=== PATIENT | female | born 1990 | race Caucasian/White ===

== ENCOUNTER 2019-09-22 19:54 | Inpatient (IN) | payer BC ==
[~2019-09-22] VITALS: Ht 157.5 cm; Wt 100.5 kg
[~2019-09-22 19:54] MED LIST: ATOR20TA PO; FENO48TA16 PO; INSU100I13 SQ; LISI10TA2 PO
[2019-09-22] MEDS ORDERED: IV RINGERS SOLUTION,LACTATED 1,000 ML IV SCH (20:17)
[2019-09-22] MEDS ORDERED: KETOROLAC 30 MG/ML VIAL. IVP ONE (20:30)
[2019-09-22] MEDS ORDERED: ASPIRIN CHEWABLE 81 MG TABLET. PO ONE (20:30)
[2019-09-22 20:43] LABS: BASO # 0.1 x10^3/uL (0.0-0.2); BASO % 1 % (0-3); EOS # 0.4 x10^3/uL (0.0-0.7); EOS % 3 % (0-3); HEMATOCRIT 44.9 % (36.0-47.0); LYMPH # 3.8 x10^3/uL (1.0-4.8); LYMPH % 31 % (24-48); MEAN CORPUSCULAR VOLUME 88 fL (79-100); MONO # 0.4 x10^3/uL (0.0-1.1); MONO % 4 % (0-9); NEUT # 7.4 x10^3uL (1.8-7.7); NEUT % 61 % (31-73); PLATELET COUNT 347 x10^3/uL (140-400); RED BLOOD COUNT 5.09 x10^6/uL (3.50-5.40); RED CELL DISTRIBUTION WIDTH 13.8 % (11.5-14.5); WHITE BLOOD COUNT 12.1 x10^3/uL (4.0-11.0)
--- NOTE | 2019-09-22 21:04 | RAD ---
Two-view chest dated 09/22/2019. No comparison available. CLINICAL INDICATION: Chest pain and cough. FINDINGS: PA and lateral views obtained. Heart and mediastinal contours within normal limits. Lungs are clear. No consolidation or pleural effusion. No pneumothorax. IMPRESSION: No acute radiographic abnormality. Electronically signed by: Humza Berkowitz MD (09/22/2019 9:01 PM) [facility]
[2019-09-22 21:05] LABS: BARBITURATES NEG (NEG); BENZODIAZEPINES NEG (NEG); CANNABINOIDS NEG (NEG); COCAINE NEG (NEG); METHADONE NEG (NEG); OPIATES NEG (NEG); PHENCYCLIDINE NEG (NEG)
[2019-09-22 21:09] LABS: AMPHETAMINE/METHAMPHETAMINE NEG (NEG)
[2019-09-22 21:25] LABS: BLOOD UREA NITROGEN 13 mg/dL (7-20); CHLORIDE 92 mmol/L (98-107); CREATININE 0.7 mg/dL (0.6-1.0); GFR 99.6; POTASSIUM 4.2 mmol/L (3.5-5.1); SODIUM 127 mmol/L (136-145)
--- NOTE | 2019-09-22 21:25 | PHYS DOC ---
Past History Past Medical History: Anxiety, Bronchitis, Diabetes, High Cholesterol, Other Additional Past Medical Histor: insulin pump- 2015 Past Surgical History: Tubal ligation Smoking: Cigarettes Alcohol Use: Occasionally General Adult EDM: Chief Complaint: CHEST PAIN HPI: HPI: "..I been....having this cough..and this central chest pain....... the pain was in my chest when I woke up but is gotten worse all day long... Then coughing has also gotten worse tonight...".." I do smoke..but ..this seems different..I do have diabetes.... Patient is a 28 year old FEMALE who presents with above hx and complaints of chest pain and cough. Patient states pain started this morning upon waking and persisted throughout the day. Has been no improvement throughout the day. Patient's cough has increased throughout the day. Cough has been nonproductive. No history of trauma. Patient does smoke. Patient does have a history of of elevated Lipids. No recent travel outside the [place] area she lives in [facility]. No specific ill contacts. Denies any recent history of risk for COVID. No history of fevers. No history immunosuppression. No history of previous cardiac disorders. Patient states there is a family history of cardiac disorders starting in her 30s-40's. Father had OK at age 30. Mother has history of COPD and emphysema. . Pt.follows with Dr. Yanez. Review of Systems: Review of Systems: Constitutional: Denies fever or chills Eyes: Denies change in visual acuity HENT: Denies nasal congestion or sore throat Respiratory: Hx. of non-productive smoker cough Cardiovascular: Complaints of central chest pain GI: Denies abdominal pain, nausea, vomiting, bloody stools or diarrhea : Denies dysuria Musculoskeletal: Denies back pain or joint pain Integument: Denies rash Neurologic: Denies headache, focal weakness or sensory changes Endocrine: Denies polyuria or polydipsia Lymphatic: Denies swollen glands Psychiatric: Hx anxiety Heart Score: HEART Score for Chest Pain: HEART Score for Chest Pain Response (Comments) Value History Slighlty/Non-Suspicious 0 ECG Normal 0 Age < 45 0 Risk Factors >3 Risk Factors or Hx CAD 2 Troponin < Normal Limit 0 Total 2 Risk Factors: Risk Factors: DM, Current or recent (<one month) smoker, HTN, HLP, family history of CAD, obesity. Risk Scores: Score 0 - 3: 2.5% MACE over next 6 weeks - Discharge Home Score 4 - 6: 20.3% MACE over next 6 weeks - Admit for Clinical Observation Score 7 - 10: 72.7% MACE over next 6 weeks - Early Invasive Strategies Family History: Family History: Cardiac disorder s ages 30-40's- mother and father and grandmother. Current Medications: Current Meds: Current Medications Medications (Trade) Dose Ordered Sig/Jez Start Time Stop Time Status Last Admin Dose Admin Aspirin (Aspirin Chewable) 324 mg 1X ONCE 09/22/19 20:30 09/22/19 20:31 DC 09/22/19 20:44 324 MG Ketorolac Tromethamine (Toradol 30mg Vial) 30 mg 1X ONCE 09/22/19 20:30 09/22/19 20:31 DC 09/22/19 20:44 30 MG Lactated Ringer's 1,000 ml @ 1,000 mls/hr Q1H 09/22/19 20:17 09/22/19 21:16 DC 09/22/19 20:44 1,000 MLS/HR Allergies: Allergies: Allergies Coded Allergies Type Severity Reaction Last Updated Verified latex Allergy Mild RASH 09/28/14 Yes Physical Exam: PE: Constitutional: Moderate acute distress, non-toxic appearance. [] HENT: Normocephalic, atraumatic, bilateral external ears normal, oropharynx moist, no oral exudates, nose normal. [] Eyes: PERRLA, EOMI, conjunctiva normal, no discharge. [Glasses Neck: Normal range of motion, no tenderness, supple, no stridor. [] Cardiovascular:Heart rate regular rhythm, no murmur [] Lungs & Thorax: Bilateral breath sounds equal apex with scattered wheezes on auscultation [] With deep breath and cough pain in center of chest is reproduced. Describes pain as sharp. Abdomen: Bowel sounds normal, soft, no tenderness, no masses, no pulsatile masses. Obese. Insulin pump.- Rt. Old surgery scars. Skin: Warm, dry, no erythema, no rash. [] Back: No tenderness, no CVA tenderness. [] Extremities: No tenderness, no cyanosis, no clubbing, ROM intact, no edema. No cording appreciated in the legs Neurologic: Alert and oriented X 3, normal motor function, normal sensory function, no focal deficits noted. [] Psychologic: Affect anxious, judgement normal, mood normal. [] Current Patient Data: Labs: Laboratory Tests Test 09/22/19 20:00 09/22/19 20:23 Urine Opiates Screen Neg (NEG) Urine Methadone Screen Neg (NEG) Urine Barbiturates Neg (NEG) Urine Phencyclidine Screen Neg (NEG) Urine Amphetamine/Methamphetamine Neg (NEG) Urine Benzodiazepines Screen Neg (NEG) Urine Cocaine Screen Neg (NEG) Urine Cannabinoids Screen Neg (NEG) Urine Ethyl Alcohol Neg (NEG) POC Urine HCG, Qualitative hcg negative (Negative) Vital Signs: Vital Signs Date Time Temp Pulse Resp B/P (MAP) Pulse Ox O2 Delivery O2 Flow Rate FiO2 09/22/19 19:55 98.6 83 18 146/73 (97) 96 Room Air EKG: EKG: My interpretation EKG shows a normal sinus rhythm at 73 bpm. No findings of acute morphology. [] Radiology/Procedures: Radiology/Procedures: [address] [address] IMAGING REPORT Signed PATIENT: JAROCHO VOSS ACCOUNT: [id number] : 1990 LOCATION: ER AGE: 28 SEX: F EXAM STATUS: REG ER ORD. PHYSICIAN: DEBBIE SHAH MD REASON: DYSPNEA, CP Omni 350 100cc PROCEDURE: CT ANGIOGRAPHY CHEST EXAM: CT ANGIOGRAPHY OF THE CHEST WITH AND WITHOUT CONTRAST. HISTORY: Dyspnea, chest pain. TECHNIQUE: Computed tomographic angiography of the chest was performed before and after the intravenous administration of iodinated contrast. 3-D maximum intensity projections were also performed. One or more of the following individualized dose reduction techniques were utilized for this examination: 1. Automated exposure control. 2. Adjustment of the mA and/or kV according to patient size. 3. Use of iterative reconstruction technique. COMPARISON: None. FINDINGS: Images of the upper abdomen reveal hypoattenuation of the hepatic parenchyma is consistent with diffuse hepatic steatosis. The liver is at least mildly enlarged. Bone windows reveal no suspicious lesions. No pulmonary emboli are identified. There is no aortic dissection or aneurysm. Prominent right hilar lymph nodes measure up to 1.9 x 1.3 cm. A subcarinal node measures 2.4 x 1.0 cm. There is no pleural or pericardial effusion. The heart is not enlarged. Lung windows demonstrate mild bronchial wall thickening. Mild basilar groundglass opacities most likely reflect only atelectasis. IMPRESSION: 1. No pulmonary embolism. 2. Prominent right hilar and subcarinal lymph nodes are most likely reactive in this demographic. Correlate for infection. Follow-up could be considered if there is persistent concern. 3. Mild bronchial wall thickening suggests bronchitis. 4. Diffuse hepatic steatosis. Electronically signed by: Gege Layne MD (09/23/2019 2:03 AM) [facility] DICTATED AND SIGNED BY: CRISTIAN LAYNE MD DATE: 09/23/19 [id number] [place] [id number] IMAGING REPORT Signed PATIENT: JAROCHO VOSS ACCOUNT: [id number] : 1990 LOCATION: ER AGE: 28 SEX: F EXAM STATUS: REG ER ORD. PHYSICIAN: DEBBIE SHAH MD REASON: Chest pain, cough, congestion PROCEDURE: CHEST PA & LATERAL Two-view chest dated 09/22/2019. No comparison available. CLINICAL INDICATION: Chest pain and cough. FINDINGS: PA and lateral views obtained. Heart and mediastinal contours within normal limits. Lungs are clear. No consolidation or pleural effusion. No pneumothorax. IMPRESSION: No acute radiographic abnormality. Electronically signed by: Humza Berkowitz MD (09/22/2019 9:01 PM) [facility] DICTATED AND SIGNED BY: HUMZA BERKOWITZ MD DATE: 09/22/[id number] [place] [id number] IMAGING REPORT Signed PATIENT: JAROCHO VOSS ACCOUNT: [id number] : 1990 LOCATION: ER AGE: 28 SEX: F EXAM STATUS: REG ER ORD. PHYSICIAN: DEBBIE SHAH MD REASON: Chest pain, cough, congestion PROCEDURE: CHEST PA & LATERAL Two-view chest dated 09/22/2019. No comparison available. CLINICAL INDICATION: Chest pain and cough. FINDINGS: PA and lateral views obtained. Heart and mediastinal contours within normal limits. Lungs are clear. No consolidation or pleural effusion. No pneumothorax. IMPRESSION: No acute radiographic abnormality. Electronically signed by: Humza Berkowitz MD (09/22/2019 9:01 PM) [facility] [place]ATED AND SIGNED BY: HUMZA BERKOWITZ MD DATE: 09/22/192100 CC: DEBBIE SHAH MD; YVES YANEZ MD ~ Course & Med Decision Making: Course & Med Decision Making Pertinent Labs and Imaging studies reviewed. (See chart for details) Pt. admitted to and cardiology consult. Discussed presentation, testing and tx. plan. ( Awaiting Lipid - levels) Impression: 1. Chest Pain 2. Elevated D-Dimer 5.48 3. Leukocytosis 12.1 4. Hyponatremia 127- Suspect reactive to elev. glucose 5. DM - glu. 320 6. Malnutrition Alb.3.1 7. Bronchitis 8. Hx. Elevated Lipids 9. Tobacco Use [] Roxana Disclaimer: Roxana Disclaimer: This electronic medical record was generated, in whole or in part, using a voice recognition dictation system. Departure Departure: Disposition: HOME/RESIDENCE PRIOR TO ADM Condition: STABLE Referrals: YVES YANEZ MD (PCP) Roxana Disclaimer This chart was dictated in whole or in part using Voice Recognition software in a busy, high-work load, and often noisy Emergency Department environment. It may contain unintended and wholly unrecognized errors or omissions. DEBBIE SHAH MD September 22, 2019 21:25
[2019-09-22 21:34] LABS: ALBUMIN 3.1 g/dL (3.4-5.0); ALK PHOS 101 U/L (46-116); ANION GAP 9 (6-14); CALCIUM 8.7 mg/dL (8.5-10.1); CARBON DIOXIDE 26 mmol/L (21-32); GLUCOSE 320 mg/dL (70-99); LIPASE 131 U/L (73-393); MAGNESIUM 1.7 mg/dL (1.8-2.4); TOTAL BILIRUBIN 0.4 mg/dL (0.2-1.0)
[2019-09-22 21:37] LABS: HEMOGLOBIN 14.5 g/dL (12.0-15.5)
[2019-09-22 21:38] LABS: MEAN CORPUSCULAR HEMOGLOBIN 29 pg (25-35); MEAN CORPUSCULAR HGB CONC 32 g/dL (31-37)
[2019-09-22 21:44] LABS: TOTAL PROTEIN 6.9 g/dL (6.4-8.2)
[2019-09-22 21:54] LABS: BACTERIA,URINE FEW /HPF (0-FEW); BILIRUBIN,URINE NEG (NEG); CLARITY,URINE CLEAR; COLOR,URINE YELLOW; GLUCOSE,URINE 500 mg/dL (NEG); NITRITE,URINE NEG (NEG); RBC,URINE OCC /HPF (0-2); SQUAMOUS EPITHELIAL CELL,UR MOD /LPF; UROBILINOGEN,URINE 0.2 mg/dL (0.2 mg/dL); WBC,URINE 0 /HPF (0-4)
[2019-09-22 22:41] LABS: DIRECT BILIRUBIN < 0.1 mg/dL (0.0-0.2)
[2019-09-22 22:51] LABS: % BANDS 4 % (0-9); % EOS 7 % (0-5); % LYMPHS 30 % (24-48); % MONOS 3 % (0-10); % OTHERS 1 % (0-0); % SEGS 55 % (35-66); PLT ESTIMATE ADEQUATE (ADEQUATE)
[2019-09-22 22:57] LABS: ALT (SGPT) 24 U/L (14-59)
[2019-09-22 23:10] LABS: AST (SGOT) 43 U/L (15-37)
--- NOTE | 2019-09-22 23:19 | EKG ---
[address] [address] Test Date: 2019-09-22 Test Time: 20:09:17 Pat Name: JAORCHO VOSS Department: Room: Gender: F Curriculum Counselor: : 1990 Requested By: DEBBIE SHAH Order Number: [id number] Reading MD: Abdi Prince Measurements Intervals [place] Rate: 73 P: 0 WA: 128 QRS: 47 QRSD: 94 T: 3 QT: 372 QTc: 413 Interpretive Statements SINUS RHYTHM NORMAL ECG RI6.02 No previous ECG available for comparison Electronically Signed On 09-23-2019 15:51:00 CDT by Abdi Prince
[2019-09-23] MEDS ORDERED: CONTRAST GIVEN MC PRN (00:15)
[2019-09-23] MEDS ORDERED: IOHEXOL 350 MG/ML 100 ML VIAL. IV ONE (00:30)
[2019-09-23] MEDS ORDERED: ENOXAPARIN ** NOTE DOSE ** SYRINGE SQ ONE ×2 (00:30→09:00)
[2019-09-23] MEDS ORDERED: INSULIN REGULAR 100 UNIT/ML 3ML VIAL. SQ ONE (01:00)
[2019-09-23] MEDS ORDERED: SODIUM BICARB ADULT 8.4% 50 MEQ/50 ML DISP.SYRIN. IV ONE (01:00)
[2019-09-23] MEDS ORDERED: MAGNESIUM SULFATE 2GM 50 ML IV ONE (01:00)
--- NOTE | 2019-09-23 02:06 | RAD ---
EXAM: CT ANGIOGRAPHY OF THE CHEST WITH AND WITHOUT CONTRAST. HISTORY: Dyspnea, chest pain. TECHNIQUE: Computed tomographic angiography of the chest was performed before and after the intravenous administration of iodinated contrast. 3-D maximum intensity projections were also performed. One or more of the following individualized dose reduction techniques were utilized for this examination: 1. Automated exposure control. 2. Adjustment of the mA and/or kV according to patient size. 3. Use of iterative reconstruction technique. COMPARISON: None. FINDINGS: Images of the upper abdomen reveal hypoattenuation of the hepatic parenchyma is consistent with diffuse hepatic steatosis. The liver is at least mildly enlarged. Bone windows reveal no suspicious lesions. No pulmonary emboli are identified. There is no aortic dissection or aneurysm. Prominent right hilar lymph nodes measure up to 1.9 x 1.3 cm. A subcarinal node measures 2.4 x 1.0 cm. There is no pleural or pericardial effusion. The heart is not enlarged. Lung windows demonstrate mild bronchial wall thickening. Mild basilar groundglass opacities most likely reflect only atelectasis. IMPRESSION: 1. No pulmonary embolism. 2. Prominent right hilar and subcarinal lymph nodes are most likely reactive in this demographic. Correlate for infection. Follow-up could be considered if there is persistent concern. 3. Mild bronchial wall thickening suggests bronchitis. 4. Diffuse hepatic steatosis. Electronically signed by: Gege Layne MD (09/23/2019 2:03 AM) [facility]
[2019-09-23] MEDS ORDERED: IV NORMAL SALINE 1,000ML 1,000 ML IV SCH (02:09)
[2019-09-23] MEDS ORDERED: MORPHINE SULFATE 2 MG/ML DISP.SYRIN. IVP PRN (02:15)
[2019-09-23] MEDS ORDERED: ACETAMINOPHEN 325 MG TABLET PO PRN (02:15)
[2019-09-23] MEDS ORDERED: ANTI-COAG MONITOR BY PHARMACY. MC PRN (02:30)
[2019-09-23] MEDS ORDERED: AZITHROMYCIN 250 MG TABLET. PO ONE (02:30)
[2019-09-23] MEDS: IV RINGERS SOLUTION,LACTATED 1,000 ML IV SCH ×3 (03:07→13:12)
[2019-09-23] MEDS ORDERED: MORPHINE SULFATE 10 MG/ML SYRINGE. ONE (03:16)
--- NOTE | 2019-09-23 03:50 | NUR ---
The patient, JAROCHO VOSS, 28 y/o, F admitted by ELISA QUINTANILLA MD, was given written information regarding hospital policies, unit procedures and contact persons. Valuables were checked and VSS. pt monitored via desk monitor. pt a&o able to express concerns. will continue to monitor.
[2019-09-23 03:51] VITALS: BP 140/75
[2019-09-23 05:26] VITALS: BP 119/63
[2019-09-23] MEDS ORDERED: METF500T16 PO (05:42)
[2019-09-23] MEDS ORDERED: NIAC-9 PO (05:42)
[2019-09-23] MEDS ORDERED: FENO48TA16 PO (05:42)
[2019-09-23] MEDS ORDERED: LISI-338 PO (05:42)
[2019-09-23] MEDS ORDERED: LIPITOR80 MG PO (05:42)
--- NOTE | 2019-09-23 05:58 | NUR ---
Cardiology Consult called this am.
[2019-09-23] MEDS: IPRATRPIUM/ALBUTEROL 0.5/2.5MG 3 ML NEBU. NEB SCH ×4 (08:00→20:00)
--- NOTE | 2019-09-23 08:30 | PDOC2 ---
CARDIAC CONSULT DATE OF CONSULT Date Of Consult DATE: 09/23/19 TIME: 08:25 REASON FOR CONSULT Reason for Consult Chest pain, HTN REFERRING PHYSICIAN Referring Physician Dr. Raya SOURCE Source: Chart review, Patient HPI History of Present Illness This is a 28 yo female who presented secondary to chest pain. Patient reports pain began yesterday morning. Worse after afternoon nap so she came to the ED for further evaluation and treatment. Located in her central/epigastric region. Describes as stabbing in nature. Worse with apply pressure to her central chest. No associated shortness of breath, dizziness, diaphoresis, or palpitations. Does report recent persistent cough. No fevers. No known sick contacts. PAST MEDICAL HISTORY Cardiovascular: hyperipidemia Endocrine: Diabetes PAST SURGICAL HISTORY Past Surgical History: No pertinent history FAMILY HISTORY Family History: Heart Disease SOCIAL HISTORY Smoke: <1 pack per day ALCOHOL: none Drugs: None Lives: with Family CURRENT MEDICATIONS Current Medications Current Medications Aspirin (Aspirin Chewable) 324 mg 1X ONCE PO Last administered on 09/22/19at 20:44; Start 09/22/19 at 20:30; Stop 09/22/19 at 20:31; Status DC Lactated Ringer's 1,000 ml @ 1,000 mls/hr Q1H IV Last administered on 09/22/19at 20:44; Start 09/22/19 at 20:17; Stop 09/22/19 at 21:16; Status DC Ketorolac Tromethamine (Toradol 30mg Vial) 30 mg 1X ONCE IVP Last administered on 09/22/19at 20:44; Start 09/22/19 at 20:30; Stop 09/22/19 at 20:31; Status DC Enoxaparin Sodium (Lovenox 100mg Syringe) 100 mg 1X ONCE SQ Last administered on 09/23/19at 00:05; Start 09/23/19 at 00:30; Stop 09/23/19 at 00:31; Status DC Iohexol (Omnipaque 350 Mg/ml) 100 ml 1X ONCE IV Last administered on 09/23/19at 00:28; Start 09/23/19 at 00:30; Stop 09/23/19 at 00:31; Status DC Info (Do NOT chart on this entry -- for MONITORING) 1 each PRN DAILY PRN MC SEE COMMENTS; Start 09/23/19 at 00:15; Stop 09/25/19 at 00:14 Sodium Bicarbonate (Sodium Bicarb Adult 8.4% Syr) 50 meq 1X ONCE IV Last administered on 09/23/19at 00:55; Start 09/23/19 at 01:00; Stop 09/23/19 at 01:01; Status DC Magnesium Sulfate 50 ml @ 25 mls/hr 1X ONCE IV Last administered on 09/23/19at 00:54; Start 09/23/19 at 01:00; Stop 09/23/19 at 02:59; Status DC Insulin Human Regular (HumuLIN R VIAL) 10 unit 1X ONCE SQ Last administered on 09/23/19at 01:03; Start 09/23/19 at 01:00; Stop 09/23/19 at 01:01; Status DC Ondansetron HCl (Zofran) 4 mg PRN Q4HRS PRN IVP NAUSEA/VOMITING; Start 09/23/19 at 02:15; Stop 09/24/19 at 02:14 Morphine Sulfate (Morphine 2mg Syringe) 2 mg PRN Q4HRS PRN IVP PAIN; Start 09/23/19 at 02:15; Stop 09/24/19 at 02:14 Sodium Chloride 1,000 ml @ 0 mls/hr Q0M IV ; Start 09/23/19 at 02:09; Stop 09/24/19 at 02:08; Status UNV Acetaminophen (Tylenol) 650 mg PRN Q4HRS PRN PO FEVER > 100.3'F; Start 09/23/19 at 02:15; Stop 09/24/19 at 02:14 Albuterol/ Ipratropium (Duoneb) 3 ml RTQID NEB ; Start 09/23/19 at 08:00; Stop 09/24/19 at 07:59 Aspirin (Aspirin Chewable) 81 mg DAILYWBKFT PO ; Start 09/23/19 at 08:00 Enoxaparin Sodium (Lovenox 100mg Syringe) 100 mg BID ONCE SQ ; Start 09/23/19 at 09:00; Stop 09/23/19 at 09:01 Lactated Ringer's 1,000 ml @ 160 mls/hr Q6H15M IV Last administered on 09/23/19at 03:07; Start 09/23/19 at 02:15 Sodium Chloride 1,000 ml @ 1,000 mls/hr Q1H IV ; Start 09/24/19 at 02:30; Stop 09/24/19 at 03:29 Azithromycin (Zithromax) 500 mg 1X ONCE PO Last administered on 09/23/19at 03:07; Start 09/23/19 at 02:30; Stop 09/23/19 at 02:31; Status DC Azithromycin (Zithromax) 250 mg DAILY PO ; Start 09/23/19 at 09:00 Info (Anti-Coagulation Monitoring By Pharmacy) 1 each PRN DAILY PRN MC SEE COMMENTS; Start 09/23/19 at 02:30 Morphine Sulfate (Morphine 10mg Syringe) 10 mg STK-MED ONCE .ROUTE ; Start 09/23/19 at 03:16; Stop 09/23/19 at 03:17; Status DC Active Scripts Active Reported Niacor (Niacin) 500 Mg Tablet 500 Mg PO BID Lisinopril 5 Mg Tablet 1 Tab PO DAILY Tricor (Fenofibrate Nanocrystallized) 48 Mg Tablet 1 Tab PO DAILY Lipitor (Atorvastatin Calcium) 80 Mg Tablet 1 Tab PO HS Metformin Hcl 500 Mg Tablet 1 Tab PO BID ALLERGIES Allergies: Coded Allergies: latex (Verified Allergy, Mild, RASH, 09/28/14) ROS Review of Systems 14 point ROS conducted with pertinent positives noted above in HPI PHYSICAL EXAM General: Alert, Oriented X3, Cooperative, No acute distress HEENT: Atraumatic, Mucous membr. moist/pink Lungs: Clear to auscultation Heart: Regular rate, Normal S1, Normal S2 Abdomen: Soft, No tenderness Extremities: No edema, Normal pulses Skin: No breakdown Neuro: Normal speech, Sensation intact Psych/Mental Status: Mental status NL, Mood NL MUSCULOSKELETAL: Osteoarthritic changes both hands VITALS Vital Signs Vital Signs Date Time Temp Pulse Resp B/P (MAP) Pulse Ox O2 Delivery O2 Flow Rate FiO2 09/23/19 05:26 96.2 66 20 119/63 (81) 92 Room Air LABS LABS Laboratory Tests Test 09/22/19 20:00 09/22/19 20:23 09/22/19 20:25 09/23/19 03:10 Urine Collection Type Unknown Urine Color Yellow Urine Clarity Clear Urine pH 5.0 Urine Specific [place] 1.020 Urine Protein 100 mg/dl (NEG-TRACE) Urine Glucose (UA) 500 mg/dL (NEG) Urine Ketones (Stick) Trace mg/dL (NEG) Urine Blood Neg (NEG) Urine Nitrite Neg (NEG) Urine Bilirubin Neg (NEG) Urine Urobilinogen Dipstick 0.2 mg/dL (0.2 mg/dL) Urine Leukocyte Esterase Neg (NEG) Urine RBC Occ /HPF (0-2) Urine WBC 0 /HPF (0-4) Urine Squamous Epithelial Cells Mod /LPF Urine Bacteria Few /HPF (0-FEW) Urine Opiates Screen Neg (NEG) Urine Methadone Screen Neg (NEG) Urine Barbiturates Neg (NEG) Urine Phencyclidine Screen Neg (NEG) Urine Amphetamine/Methamphetamine Neg (NEG) Urine Benzodiazepines Screen Neg (NEG) Urine Cocaine Screen Neg (NEG) Urine Cannabinoids Screen Neg (NEG) Urine Ethyl Alcohol Neg (NEG) Bedside Urine HCG, Qualitative hcg negative (Negative) White Blood Count 12.1 x10^3/uL (4.0-11.0) Red Blood Count 5.09 x10^6/uL (3.50-5.40) Hemoglobin 14.5 g/dL (12.0-15.5) Hematocrit 44.9 % (36.0-47.0) Mean Corpuscular Volume 88 fL (79-100) Mean Corpuscular Hemoglobin 29 pg (25-35) Mean Corpuscular Hemoglobin Concent 32 g/dL (31-37) Red Cell Distribution Width 13.8 % (11.5-14.5) Platelet Count 347 x10^3/uL (140-400) Neutrophils (%) (Auto) 61 % (31-73) Lymphocytes (%) (Auto) 31 % (24-48) Monocytes (%) (Auto) 4 % (0-9) Eosinophils (%) (Auto) 3 % (0-3) Basophils (%) (Auto) 1 % (0-3) Neutrophils # (Auto) 7.4 x10^3uL (1.8-7.7) Lymphocytes # (Auto) 3.8 x10^3/uL (1.0-4.8) Monocytes # (Auto) 0.4 x10^3/uL (0.0-1.1) Eosinophils # (Auto) 0.4 x10^3/uL (0.0-0.7) Basophils # (Auto) 0.1 x10^3/uL (0.0-0.2) Segmented Neutrophils % 55 % (35-66) Band Neutrophils % 4 % (0-9) Lymphocytes % 30 % (24-48) Monocytes % 3 % (0-10) Eosinophils % 7 % (0-5) Other Cells % 1 % (0-0) Platelet Estimate Adequate (ADEQUATE) Prothrombin Time < 9.3 SEC (9.4-11.4) Prothromb Time International Ratio 0.8 (0.9-1.1) Activated Partial Thromboplast Time 23 SEC (23-33) D-Dimer (Sarika) 5.48 mg/L (0.00-0.50) Maternal Serum HCG Beta Subunit 1 mIU/mL (0-6) Sodium Level 127 mmol/L (136-145) Potassium Level 4.2 mmol/L (3.5-5.1) Chloride Level 92 mmol/L (98-107) Carbon Dioxide Level 26 mmol/L (21-32) Anion Gap 9 (6-14) Blood Urea Nitrogen 13 mg/dL (7-20) Creatinine 0.7 mg/dL (0.6-1.0) Estimated GFR (Cockcroft-Gault) 99.6 Glucose Level 320 mg/dL (70-99) Calcium Level 8.7 mg/dL (8.5-10.1) Magnesium Level 1.7 mg/dL (1.8-2.4) Total Bilirubin 0.4 mg/dL (0.2-1.0) Direct Bilirubin < 0.1 mg/dL (0.0-0.2) Aspartate Amino Transf (AST/SGOT) 43 U/L (15-37) Alanine Aminotransferase (ALT/SGPT) 24 U/L (14-59) Alkaline Phosphatase 101 U/L (46-116) Creatine Kinase 124 U/L (26-192) Creatine Kinase MB (Mass) 0.9 ng/mL (0.0-3.6) Creatine Kinase MB Relative Index 0.7 % (0-4) Troponin I Quantitative < 0.017 ng/mL (0-0.055) [place]-V-Type Natriuretic Peptide 115 pg/mL (0-124) Total Protein 6.9 g/dL (6.4-8.2) Albumin 3.1 g/dL (3.4-5.0) Lipase 131 U/L (73-393) Glucose (Fingerstick) 96 mg/dL (70-99) Test 09/23/19 05:22 Troponin I Quantitative < 0.017 ng/mL (0-0.055) ASSESSMENT/PLAN Assessment/Plan 1. Chest pain,atypical; AMI ruled out. Possible GI in nature. Cannot rule out pleuritic pain as well given recurrent coughing. COVID pending. 2. Diabetes, I 3. Elevated d-dimer 4. Hypomagnesemia; replaced Recommendations Lipids, TSH Will try GI cocktail Supportive care MARTHA PRINCE APRN September 23, 2019 08:30
[2019-09-23] MEDS ORDERED: LIDO:MAALOX 1:1 20 ML SINGLE DOSE. PO PRN (09:00)
--- NOTE | 2019-09-23 09:09 | NUR ---
Cancelled breathing treatments due to pending Covid test results
[2019-09-23] MEDS: AZITHROMYCIN 250 MG TABLET. PO SCH (10:54)
[2019-09-23] MEDS: ASPIRIN CHEWABLE 81 MG TABLET. PO SCH (10:54)
[2019-09-23 11:30] VITALS: BP 101/51
[2019-09-23] MEDS: ONDANSETRON PF 4 MG/2 ML VIAL. IVP PRN ×2 (13:30→18:42)
[2019-09-23 15:00] VITALS: BP 112/58
[2019-09-23 17:00] LABS: THYROID STIM HORMONE (TSH) 1.764 uIU/mL (0.358-3.740); TRIGLYCERIDES 3615 mg/dL (0-150); VLDLC 723 mg/dL (0-40)
[2019-09-23] MEDS ORDERED: INSULIN LISPRO 300 UNITS/3 ML VIAL. SQ SCH (17:00)
[2019-09-23] MEDS: IV NORMAL SALINE 1,000ML 1,000 ML IV SCH (17:00)
[2019-09-23] MEDS ORDERED: DEXTROSE 50% 25 GM / 50ML DISP.SYRIN. IV PRN (17:00)
--- NOTE | 2019-09-23 18:14 | HP ---
ADMIT DATE: 09/23/2019 HISTORY OF PRESENT ILLNESS: The patient is a 28-year-old female patient who presented to the Emergency Room with complaint of chest pain that is retrosternal, started yesterday, has been worsening throughout the day. She has cough that also got worse. She does smoke and the pain initially was not associated with any shortness of breath; however, did have some nausea and vomiting today. She has also some pain radiating to the left upper extremity around the shoulder and the pain is reproducible on palpating the sternum. The cough is mostly dry. Denied any phlegm or sputum or hemoptysis. She was extensively investigated in the Emergency Room. Her EKG showed that she was in normal sinus rhythm at 73 beats per minute, no finding of acute morphology. Her chest x-ray showed no acute radiographic abnormality. The heart and mediastinal contours within normal limits. Lungs are clear. No consolidation, pleural effusion, no pneumothorax. Her CT angio of the chest showed that the patient has no pulmonary embolism. She has prominent hilar and subcarinal lymph nodes, are mostly likely reactive and this demographic correlates for infection. Followup could be considered if there is persistent concern. Mild bronchial wall thickening suggesting bronchitis diffuse, hepatic steatosis. The lung windows demonstrate mild bronchial wall thickening, mild basilar ground glass opacities, most likely reflecting only atelectasis. Liver is at least mildly enlarged. Bone windows reveal no suspicious lesion. Her lab work showed that her white cell count was slightly elevated at 12,100, hemoglobin 14.5, hematocrit 44 and platelet count 347,000. Her prothrombin time, INR and aPTT were normal. D-dimer was elevated at 5.48. She has had lab work done. Her chemistry was unremarkable. She has ____ hyperglycemia. She has 2 sets of cardiac enzymes, both were less than 0.017. The patient was admitted to consult the cardiology team given the finding also on her CT scan of the chest. COVID-19 testing was ordered. She was found also to have other abnormalities including hyponatremia, which is still low even it is corrected for the blood sugar. PAST MEDICAL HISTORY: Significant for diabetes mellitus, hyperlipidemia. PAST SURGICAL HISTORY: Significant for tonsillectomy and tubal ligation. ALLERGIES: She is allergic to LATEX. MEDICATIONS: She is currently on following medications: She is on fenofibrate ____ 48 mg once a day, atorvastatin calcium 80 mg at bedtime, niacin 500 mg twice a day, lisinopril 5 mg once a day, metformin 500 mg twice a day. FAMILY HISTORY: She has 3 brothers and 2 sisters, all of them half-brothers and sisters. Her father is alive and at the age of 44, he had first heart attack when he was in his 30s. He has AICD. Her mother is still alive and has COPD. SOCIAL HISTORY: She is , smokes, has no children. She smokes half a pack a day, does not drink alcohol or use any recreational drugs. She works at [employer]. REVIEW OF SYSTEMS: Unremarkable. PHYSICAL EXAMINATION: GENERAL: On arrival to the Emergency Room, she looked well and was clearly in no apparent respiratory distress. No pallor, jaundice, cyanosis or thyromegaly. No jugular venous distention or limb edema. VITAL SIGNS: Her heart rate was 83, blood pressure was 146/73, temperature was 98.6, respiratory rate was 18 and oxygen saturation was 96%. HEAD, EYES, EARS, NOSE AND THROAT: Showed normocephalic, atraumatic. NECK: Supple. CARDIAC: Normal first and second heart sounds. No gallop, rub or murmur. CHEST: Shows central trachea, equal bilateral expansion, air entry, vesicular sounds with very few scattered rhonchi, could not appreciate any crepitation. ABDOMEN: Distended, soft, nontender. NEUROLOGIC: She was awake, alert, responding appropriately. All cranial nerves intact. EXTREMITIES: She moves extremities without difficulty. She ambulates without assistance or assistive devices. LABORATORY DATA: Showed a white cell count of 12,100, hemoglobin 14.5, hematocrit 44.9, MCV was 88 and platelet count 347,000 with normal manual differential. Her prothrombin time was 9.3, INR 0.8, aPTT was 23 and D-dimer was 5.48. Her chemistry showed a serum sodium of 127, potassium 4.2, chloride 92, bicarbonate 26, anion gap of 9, BUN 13, creatinine 0.7, estimated GFR was 99 mL per minute. Her glucose was 320, calcium was 8.7, magnesium was 1.7. Total bilirubin, AST, ALT, alkaline phosphatase were normal. CK was 124. Beta-natriuretic peptide was 115 and total protein 6.9, albumin 3.1. Urinalysis showed the urine was yellow, clear with a pH of 5, specific gravity of 1.020. There was large amount of protein, large amount of glucose, trace of ketones, negative for blood, nitrite, bilirubin and leukocyte esterase. There are no rbc's, no wbc's, and no bacteria. Her urine test was negative. Toxic screen was essentially negative. Again, her chest x-ray showed the heart and mediastinal contours are within normal limits. Lungs are clear. No consolidation, pleural effusion, no pneumothorax. CT angio of the chest showed that she has no pulmonary embolism. She has prominent right hilar and subcarinal lymph nodes that are most likely reactive. Followup could be considered if there is persistent concern. She has mild bronchial wall thickening suggesting bronchitis and diffuse hepatic steatosis. PLAN: To obviously make the patient do 2 more sets of cardiac enzyme, consult the Cardiology team given the finding on the CT scan. Also, COVID test was ordered and still pending at the time of this dictation. I will continue with Zithromax and add also Rocephin and if the COVID test was obviously negative, she can be discharged home tomorrow. ELISA QUINTANILLA MD DR: KEVAN/wes JOB#: [id number] / [id number]
[2019-09-23 20:03] VITALS: BP 99/60
[2019-09-23] MEDS ORDERED: ATORVASTATIN CALCIUM 20 MG TABLET PO SCH (21:00)
[2019-09-23] MEDS: LACTOBACILLUS RHAMNOSUS GG 1 CAPSULE. PO SCH (21:45)
[2019-09-23] MEDS: NIACIN ER 500 MG TABLET.ER PO SCH (21:45)
[2019-09-24 00:10] VITALS: BP 94/57
[2019-09-24] MEDS ORDERED: IV NORMAL SALINE 1,000ML 1,000 ML IV SCH (02:30)
[2019-09-24] MEDS: IV NORMAL SALINE 1,000ML 1,000 ML IV SCH (02:57)
[2019-09-24 06:26] LABS: BASO # 0.1 x10^3/uL (0.0-0.2); BASO % 2 % (0-3); EOS # 0.2 x10^3/uL (0.0-0.7); EOS % 3 % (0-3); HEMATOCRIT 40.8 % (36.0-47.0); HEMOGLOBIN 13.9 g/dL (12.0-15.5); LYMPH # 2.8 x10^3/uL (1.0-4.8); LYMPH % 36 % (24-48); MEAN CORPUSCULAR HEMOGLOBIN 30 pg (25-35); MEAN CORPUSCULAR HGB CONC 34 g/dL (31-37); MEAN CORPUSCULAR VOLUME 88 fL (79-100); MONO # 0.4 x10^3/uL (0.0-1.1); MONO % 5 % (0-9); NEUT # 4.2 x10^3uL (1.8-7.7); NEUT % 54 % (31-73); PLATELET COUNT 234 x10^3/uL (140-400); RED BLOOD COUNT 4.63 x10^6/uL (3.50-5.40); RED CELL DISTRIBUTION WIDTH 14.1 % (11.5-14.5); WHITE BLOOD COUNT 7.8 x10^3/uL (4.0-11.0)
[2019-09-24 06:33] LABS: CALCIUM 7.8 mg/dL (8.5-10.1); CREATININE 0.7 mg/dL (0.6-1.0); GFR 99.6
[2019-09-24 06:34] LABS: POTASSIUM 3.4 mmol/L (3.5-5.1)
[2019-09-24 06:46] VITALS: BP 112/66
[2019-09-24 08:14] VITALS: BP 112/66
[2019-09-24] MEDS: NIACIN ER 500 MG TABLET.ER PO SCH (08:14)
[2019-09-24] MEDS: ASPIRIN CHEWABLE 81 MG TABLET. PO SCH (08:14)
[2019-09-24] MEDS: AZITHROMYCIN 250 MG TABLET. PO SCH (08:14)
[2019-09-24] MEDS: LACTOBACILLUS RHAMNOSUS GG 1 CAPSULE. PO SCH (08:14)
[2019-09-24] MEDS ORDERED: POTASSIUM CHLORIDE 20 MEQ TABLET.ER. PO ONE (08:45)
[2019-09-24] MEDS ORDERED: LISINOPRIL 5 MG TABLET. PO SCH (09:00)
[2019-09-24] MEDS ORDERED: FENOFIBRATE NANOCRYSTALLIZED 48 MG TABLET PO SCH (09:00)
--- NOTE | 2019-09-24 09:27 | DS ---
DATE OF DISCHARGE: 09/24/2019 ATTENDING PHYSICIAN: Dr. Duncan FINAL DISCHARGE DIAGNOSES: 1. Atypical chest pain, coronary ischemia ruled out. 2. Type 2 diabetes. 3. Pleurisy. 4. COVID-19 coronavirus ruled out. 5. Essential hypertension. HISTORY AND PHYSICAL: This is a 28-year-old female, smoker, who was admitted to the ED with reproducible chest pain, substernal in nature, aggravated by cough, more pleuritic in nature. She was admitted overnight for COVID-19 testing as well as serial enzymes. PHYSICAL EXAMINATION: Please see the dictated note. PERTINENT LABORATORY AND X-RAY STUDIES: Her COVID-19 swab was indeed negative. Hemoglobin maintained at 14.5 g/dL with white count of 12,000, repeat was down to 7800. Chemistry panel: Potassium was 3.4 mEq with some oral potassium administered prior to discharge. Nonfasting blood sugar 149. COURSE IN THE HOSPITAL: The patient was admitted. She was monitored. Cardiac enzymes are negative for coronary ischemia. COVID-19 swab was negative for coronavirus. She had localized symptoms related to pleurisy, which improved. She has some also left shoulder pain due to some mild supraspinatus tendinitis. On the second hospital day, she was better. She wanted to go home. I felt this is reasonable. I reassured her that her symptoms are noncardiac in nature. Strong encouragement to quit smoking. Whether or not she will quit smoking remains to be seen. I did write a script for Percocet 7.5/325 one p.o. q.6 hours p.r.n. pain. She should continue her home meds including the following: She should continue her Lipitor, TriCor, lisinopril, metformin and niacin, dose is unchanged. She will follow with her regular PCP. The patient was then discharged from our hospital in stable condition with explicit instructions and followup care. NELA JENSEN MD DR: HARDEEP/wes JOB#: [id number] / [id number]
--- NOTE | 2019-09-24 10:01 | NUR ---
Pt. discharged home with pain medication and note to return back to work. Otherwise stable and will continue use of personal insulin pump
[2019-09-25] MEDS ORDERED: metFORMIN 500 MG TABLET PO SCH (17:00)
== END 2019-09-24 10:05 | disposition home or self-care (01) | DRG 392 ==
LOC: ER 19:54 → EDUNIT# 19:54 → 1 SOUTH 09-23 02:00
PROVIDERS: ADMIT Internal Medicine; ATTEND Internal Medicine
DX: K21.9 Gastro-esophageal reflux disease without esophagitis (principal); E46 Unspecified protein-calorie malnutrition; E87.1 Hypo-osmolality and hyponatremia; Z68.41 Body mass index [BMI] 40.0-44.9, adult; R07.89 Other chest pain; D72.829 Elevated white blood cell count, unspecified; E78.00 Pure hypercholesterolemia, unspecified; E78.5 Hyperlipidemia, unspecified; R09.1 Pleurisy; Z20.828 Contact with and (suspected) exposure to other viral communicable diseases; I10 Essential (primary) hypertension; F17.210 Nicotine dependence, cigarettes, uncomplicated; K76.0 Fatty (change of) liver, not elsewhere classified; E83.42 Hypomagnesemia; Z82.5 Family history of asthma and other chronic lower respiratory diseases; Z98.51 Tubal ligation status; F41.9 Anxiety disorder, unspecified; Z82.49 Family history of ischemic heart disease and other diseases of the circulatory system; Z91.040 Latex allergy status
CPT/HCPCS: 36415; 71046; 71275; 80048; 80061; 80076; 80307; 81001; 81025; 82553; 82947; 83690; 83735; 83880; 84443; 84484; 84702; 85007; 85025; 85379; 85610; 85730; 93005; 96365; 96372; 96375; J0456; J0696; J1650; J1815; J1885; J2270; J2405; J3475; J7120; Q9967; 99285-25; J7030; U0003-CS

== ENCOUNTER 2019-10-28 19:49 | Emergency (ER) | payer BC ==
[~2019-10-28] VITALS: Ht 157.5 cm; Wt 94.0 kg
[~2019-10-28 19:49] MED LIST changes: +LIPITOR80 MG PO; +LISI-338 PO; +METF500T16 PO; +NIAC-9 PO
[2019-10-28] MEDS ORDERED: FAMOTIDINE 20 MG/2 ML VIAL ONE (20:10)
[2019-10-28] MEDS ORDERED: KETOROLAC 15 MG/ML VIAL. IVP ONE (20:15)
[2019-10-28] MEDS ORDERED: IV NORMAL SALINE 1,000ML 1,000 ML IV ONE ×2 (20:15→22:15)
[2019-10-28] MEDS ORDERED: FAMOTIDINE 20 MG/2 ML VIAL IVP ONE (20:15)
--- NOTE | 2019-10-28 20:34 | EKG ---
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
[2019-10-28 20:43] LABS: BILIRUBIN,URINE NEG (NEG); CLARITY,URINE HAZY; COLOR,URINE YELLOW; GLUCOSE,URINE >=1000 mg/dL (NEG); NITRITE,URINE NEG (NEG); UROBILINOGEN,URINE 0.2 mg/dL (0.2 mg/dL)
[2019-10-28 20:44] LABS: BACTERIA,URINE 0 /HPF (0-FEW); RBC,URINE OCC /HPF (0-2); SQUAMOUS EPITHELIAL CELL,UR OCC /LPF
[2019-10-28 20:46] LABS: AMPHETAMINE/METHAMPHETAMINE NEG (NEG); BARBITURATES NEG (NEG); BENZODIAZEPINES NEG (NEG); CANNABINOIDS NEG (NEG); COCAINE NEG (NEG); METHADONE NEG (NEG); OPIATES NEG (NEG); PHENCYCLIDINE NEG (NEG)
--- NOTE | 2019-10-28 20:49 | RAD ---
Exam: Chest one view INDICATION: Chest discomfort TECHNIQUE: Frontal view of the chest Comparisons: 09/22/2019 FINDINGS: The cardiomediastinal silhouette and pulmonary vessels are within normal limits. The lung and pleural spaces are clear. IMPRESSION: No acute cardiopulmonary process. Electronically signed by: Sheree Charlton MD (10/28/2019 8:46 PM) [id number]
[2019-10-28 21:04] LABS: BASO # 0.1 x10^3/uL (0.0-0.2); BASO % 1 % (0-3); EOS # 0.1 x10^3/uL (0.0-0.7); EOS % 1 % (0-3); HEMATOCRIT 44.5 % (36.0-47.0); HEMOGLOBIN 15.7 g/dL (12.0-15.5); LYMPH # 2.7 x10^3/uL (1.0-4.8); LYMPH % 20 % (24-48); MEAN CORPUSCULAR HEMOGLOBIN 31 pg (25-35); MEAN CORPUSCULAR HGB CONC 35 g/dL (31-37); MEAN CORPUSCULAR VOLUME 89 fL (79-100); MONO # 0.6 x10^3/uL (0.0-1.1); MONO % 5 % (0-9); NEUT # 9.8 x10^3uL (1.8-7.7); NEUT % 74 % (31-73); PLATELET COUNT 253 x10^3/uL (140-400); RED BLOOD COUNT 5.03 x10^6/uL (3.50-5.40); WHITE BLOOD COUNT 13.4 x10^3/uL (4.0-11.0)
[2019-10-28 21:22] LABS: BLOOD UREA NITROGEN 19 mg/dL (7-20); BUN/CREATININE RATIO 19 (6-20); CARBON DIOXIDE 16 mmol/L (21-32); GFR 65.6; GLUCOSE 453 mg/dL (70-99); SODIUM 132 mmol/L (136-145)
--- NOTE | 2019-10-28 21:29 | PHYS DOC ---
Past History Past Medical History: Anxiety, Bronchitis, Diabetes, High Cholesterol, Other Additional Past Medical Histor: insulin pump- 2015 Past Surgical History: Tubal ligation Smoking: Cigarettes Alcohol Use: Occasionally Drug Use: None General Adult EDM: Chief Complaint: CHEST PAIN HPI: HPI: 29-year-old female presents with report of chest pain, generalized malaise, cough, shortness of air, sore throat, and subjective chills x1 week. Patient had been seen previously for similar and admitted to the hospital for chest pain evaluation. Patient does have some cardiac risk factors including family history, smoking, high blood pressure, and high cholesterol. Denies leg swelling or calf tenderness. Denies history or family history of DVT/PE. Denies pleuritic pain. Denies known sick contacts. Denies known exposure to COVID-19. Review of Systems: Review of Systems: Constitutional: Reports subjective chills and generalized malaise Eyes: Denies redness or eye pain HENT: Reports nasal drainage and sore throat Respiratory: Reports cough and shortness of breath Cardiovascular: Reports chest pain; denies palpitations GI: Denies abdominal pain, nausea, or vomiting : Denies dysuria or hematuria Musculoskeletal: Denies back pain or joint pain Integument: Denies rash or skin lesions Neurologic: Denies headache, focal weakness or sensory changes Complete systems were reviewed and found to be within normal limits, except as documented in this note. Heart Score: HEART Score for Chest Pain: HEART Score for Chest Pain Response (Comments) Value History Slighlty/Non-Suspicious 0 ECG Normal 0 Age < 45 0 Risk Factors >3 Risk Factors or Hx CAD 2 Troponin < Normal Limit 0 Total 2 Risk Factors: Risk Factors: DM, Current or recent (<one month) smoker, HTN, HLP, family history of CAD, obesity. Risk Scores: Score 0 - 3: 2.5% MACE over next 6 weeks - Discharge Home Score 4 - 6: 20.3% MACE over next 6 weeks - Admit for Clinical Observation Score 7 - 10: 72.7% MACE over next 6 weeks - Early Invasive Strategies Current Medications: Current Meds: Current Medications Medications (Trade) Dose Ordered Sig/Jez Start Time Stop Time Status Last Admin Dose Admin Famotidine (Pepcid Vial) 20 mg STK-MED ONCE 10/28/19 20:10 10/28/19 20:10 DC Insulin Human Regular (HumuLIN R VIAL) 14 unit 1X ONCE 10/28/19 21:30 10/28/19 21:31 UNV Ketorolac Tromethamine (Toradol 15mg Vial) 15 mg 1X ONCE 10/28/19 20:15 10/28/19 20:16 DC 10/28/19 20:18 15 MG Sodium Chloride 1,000 ml @ 1,000 mls/hr 1X ONCE 10/28/19 20:15 10/28/19 21:14 DC 10/28/19 20:18 1,000 MLS/HR Allergies: Allergies: Allergies Coded Allergies Type Severity Reaction Last Updated Verified latex Allergy Mild RASH 09/28/14 Yes Physical Exam: PE: Constitutional: Well developed, well nourished, no acute distress, non-toxic appearance HENT: Normocephalic, atraumatic, no erythema or tonsilar exudate Eyes: PERRL, EOMI, conjunctiva normal, no discharge, no nystagmus Neck: Normal range of motion, no tenderness, supple, no meningeal signs Lungs & Thorax: No respiratory distress, equal chest rise and fall Abdomen: Soft, no tenderness, no guarding/rebound tenderness/distention Skin: Warm, dry, no erythema, no rash Extremities: No tenderness, ROM intact, no edema Neurologic: Alert and oriented X 3, normal motor and sensory function, no focal deficits noted Psychologic: Affect normal, judgment normal Current Patient Data: Labs: Laboratory Tests Test 10/28/19 19:56 10/28/19 20:15 10/28/19 20:21 Urine Collection Type Unknown Urine Color Yellow Urine Clarity Hazy Urine pH 5.0 Urine Specific [place] 1.025 Urine Protein 100 mg/dl (NEG-TRACE) Urine Glucose (UA) >=1000 mg/dL (NEG) Urine Ketones (Stick) Neg mg/dL (NEG) Urine Blood Trace (NEG) Urine Nitrite Neg (NEG) Urine Bilirubin Neg (NEG) Urine Urobilinogen Dipstick 0.2 mg/dL (0.2 mg/dL) Urine Leukocyte Esterase Neg (NEG) Urine RBC Occ /HPF (0-2) Urine WBC 1-4 /HPF (0-4) Urine Squamous Epithelial Cells Occ /LPF Urine Bacteria 0 /HPF (0-FEW) Urine Mucus Slight /LPF Urine Opiates Screen Neg (NEG) Urine Methadone Screen Neg (NEG) Urine Barbiturates Neg (NEG) Urine Phencyclidine Screen Neg (NEG) Urine Amphetamine/Methamphetamine Neg (NEG) Urine Benzodiazepines Screen Neg (NEG) Urine Cocaine Screen Neg (NEG) Urine Cannabinoids Screen Neg (NEG) Urine Ethyl Alcohol Neg (NEG) White Blood Count 13.4 x10^3/uL (4.0-11.0) H Red Blood Count 5.03 x10^6/uL (3.50-5.40) Hemoglobin 15.7 g/dL (12.0-15.5) H Hematocrit 44.5 % (36.0-47.0) Mean Corpuscular Volume 89 fL (79-100) Mean Corpuscular Hemoglobin 31 pg (25-35) Mean Corpuscular Hemoglobin Concent 35 g/dL (31-37) Red Cell Distribution Width 14.0 % (11.5-14.5) Platelet Count 253 x10^3/uL (140-400) Neutrophils (%) (Auto) 74 % (31-73) H Lymphocytes (%) (Auto) 20 % (24-48) L Monocytes (%) (Auto) 5 % (0-9) Eosinophils (%) (Auto) 1 % (0-3) Basophils (%) (Auto) 1 % (0-3) Neutrophils # (Auto) 9.8 x10^3uL (1.8-7.7) H Lymphocytes # (Auto) 2.7 x10^3/uL (1.0-4.8) Monocytes # (Auto) 0.6 x10^3/uL (0.0-1.1) Eosinophils # (Auto) 0.1 x10^3/uL (0.0-0.7) Basophils # (Auto) 0.1 x10^3/uL (0.0-0.2) Sodium Level 132 mmol/L (136-145) L Potassium Level 3.6 mmol/L (3.5-5.1) Chloride Level 96 mmol/L (98-107) L Carbon Dioxide Level 16 mmol/L (21-32) L Anion Gap 20 (6-14) H Blood Urea Nitrogen 19 mg/dL (7-20) Creatinine 1.0 mg/dL (0.6-1.0) Estimated GFR (Cockcroft-Gault) 65.6 BUN/Creatinine Ratio 19 (6-20) Glucose Level 453 mg/dL (70-99) H Calcium Level 7.8 mg/dL (8.5-10.1) L Magnesium Level Pending Total Bilirubin Pending Aspartate Amino Transferase (AST) Pending Alanine Aminotransferase (ALT) Pending Alkaline Phosphatase Pending Creatine Kinase Pending Creatine Kinase MB (Mass) Pending Creatine Kinase MB Relative Index Pending Troponin I Quantitative < 0.017 ng/mL (0-0.055) EE-Oky-N-Type Natriuretic Peptide Pending Total Protein Pending Albumin Pending Albumin/Globulin Ratio Pending Lipase Pending POC Urine HCG, Qualitative hcg negative (Negative) EKG: EKG: @2019 NSR at 87bpm, NO ST elevation, QRS 90ms, QT/QTc 360/439ms, t wave inversion III and V2-V3 Radiology/Procedures: Radiology/Procedures: PROCEDURE: PORTABLE CHEST 1V Exam: Chest one view INDICATION: Chest discomfort TECHNIQUE: Frontal view of the chest Comparisons: 09/22/2019 FINDINGS: The cardiomediastinal silhouette and pulmonary vessels are within normal limits. The lung and pleural spaces are clear. IMPRESSION: No acute cardiopulmonary process. Electronically signed by: Sheree Charlton MD (10/28/2019 8:46 PM) [id number] Course & Med Decision Making: Course & Med Decision Making Pertinent Labs and Imaging studies reviewed. (See chart for details) Patient presents with multiple complaints including subjective chills, generalized malaise, cough, sore throat, and chest discomfort. Patient with recent admission for chest pain rule out secondary to increased cardiac risk factors. EKG stable. Labs obtained and posted to chart. Troponin x2. PE ruled out per PERC. Hyperglycemia noted. IV fluid hydration given. Repeat glucose prior to subcutaneous insulin noted with significant improvement. Acetone negative. UA without signs of infection. Rapid strep negative. Chest x-ray without acute process. Cannot fully exclude COVID-19. COVID testing pending. Patient stable for discharge with outpatient follow-up with PCP. Discussed findings and plan with patient, who acknowledges understanding and agreement. COVID-19 CRITERIA: The patient was evaluated during the global COVID-19 pandemic, and that diagnosis was suspected/considered upon their initial presentation. Their evaluation, treatment and testing was consistent with current guidelines for patients who present with complaints or symptoms that may be related to COVID-19. Dragon Disclaimer: Roxana Disclaimer: This electronic medical record was generated, in whole or in part, using a voice recognition dictation system. Departure Departure: Impression: Primary Impression: Viral syndrome Additional Impressions: Atypical chest pain Hyperglycemia Suspected 2019 novel coronavirus infection Disposition: HOME/RESIDENCE PRIOR TO ADM Condition: STABLE Referrals: YVES YANEZ MD (PCP) BHARTI VALERIO MD Patient Instructions: Chest Pain (Nonspecific), [id number], Hyperglycemia, [id number], Viral Syndrome Additional Instructions: You have been tested for or diagnosed with COVID-19. It is an infection caused by a new type of coronavirus. COVID-19 will cause cold-like or mild flu symptoms in most. It can cause more severe symptoms like problems breathing in some. There is no treatment for COVID-19. The body will clear the infection over time. Self-care will help to ease discomfort. Steps to Take: Self-Care Rest as needed. Healthy habits may help you feel better. Steps include: Choose healthy foods including fruits and vegetables. Drink water throughout the day. Get plenty of sleep each night. If you smoke, try to quit. It may ease breathing. Avoid alcohol. Keep Others Healthy The virus can spread to others. Droplets are released every time you sneeze or cough. The droplets can get into the mouth, nose, or eyes of people near you and lead to infection. To lower the chances of spreading COVID-19 to others: Stay at home until your doctor has said it is safe to leave. If you tested positive this will mean staying isolated until both of the following are true: At least 7 days have passed since the start of illness. You are free of fever for at least 72 hours without the use of medicine. During this time: - Avoid public areas, events, or transportation. Do not return to work or school until your doctor has said it is safe to do so. - Call ahead if you need to go to a medical center. Let them know you may have COVID-19. It will help them guide you where to go. They may also ask you to wear a facemask when you come to the office. - If you call for emergency medical services, let them know you may have COVID- 19. While at home: - Try to avoid close contact with others. Stay about 6 feet away. - If possible, spend most of your time in a separate room from others. - Use a face mask if you will be in close contact with others such as sharing a room or vehicle. - Have someone wipe down common surfaces in the home. Use household audit clerks supervisor every day on areas like doorknobs, counters, or sinks. - Cough or sneeze into a tissue. Throw the tissue away right after use. If a tissue is not available, cough or sneeze into your elbow. - Wash your hands often. Wash them after sneezing or coughing. Use soap and water and wash for at least 20 seconds. Alcohol based hand hide cleaner can be used if soap and water is not available. - Do not prepare food for others. Avoid sharing personal items like forks, spoons, or toothbrushes. - Avoid close contact with pets while you are sick. There is no evidence of the virus passing to pets. This is a safety step until more is known about this virus. Isolation can be frustrating. Social interaction can help. Keep in touch with friends and family through phone and tech options. You can still interact with others in your home, just keep a safe distance of about 6 feet. Follow-up: Your doctors office will check in with you to see if there are any changes in your health. You may be asked to keep track of symptoms to share with them. They will also let you know when you are clear to be in public again. Problems to Look Out For: Contact your doctor if your recovery is not going as you expect. Get emergency care if you have problems such as: - Trouble breathing - Nonstop chest pain or pressure - Changes in awareness, confusion, or problems waking - Lips or face have bluish color - Worsening of symptoms If you think you have an emergency, call for emergency medical services right away. As taken from [facility] Famotidine (PEPCID) 20 Mg Tablet 1 TAB PO BID for Gastritis, #20 TAB Prov: ANH SMITH DO 10/28/19 Justification of Admission: Justification of Admission: Justification of Admission Dx: N/A PERC Rule for PE PERC Rule for PE Response (Comments) Value Age > 50: No 0 HR > 100: No 0 Sa02 on room air <95%: No 0 Unilateral leg swelling: No 0 Hemoptysis: No 0 Recent surgery or trauma: No 0 Prior PE or DVT: No 0 Hormone use: No 0 Total 0 COVID-19 Assessment COVID-19 Patient Risks: Age 65 or older: No Sign of co-morbidity: Yes Exp to person + for COVID: No Exp to PUI: No Travel from affected area: No Lower respiratory symptoms: Yes Fever: No PPE Use: Full PPE with N95 mask or PAPR: Yes ANH SMITH DO Oct 28, 2019 21:29
[2019-10-28] MEDS ORDERED: INSULIN REGULAR 100 UNIT/ML 3ML VIAL. SQ ONE (21:30)
[2019-10-28 21:47] LABS: ALBUMIN 2.9 g/dL (3.4-5.0); ALBUMIN/GLOBULIN RATIO 0.7 (1.0-1.7)
[2019-10-28 21:49] LABS: TOTAL BILIRUBIN 0.3 mg/dL (0.2-1.0)
[2019-10-28 21:50] LABS: ALK PHOS 96 U/L (46-116)
[2019-10-28 21:55] LABS: CHLORIDE 91 mmol/L (98-107); POTASSIUM 4.1 mmol/L (3.5-5.1)
[2019-10-28 21:56] LABS: ANION GAP 25 (6-14)
[2019-10-28] MEDS ORDERED: FAMO-63 PO (22:24)
[2019-10-28 22:51] VITALS: BP 117/58
[2019-10-28 23:00] LABS: ALT (SGPT) 16 U/L (14-59)
[2019-10-29 00:23] LABS: LIPASE 113 U/L (73-393)
== END 2019-10-28 23:15 | disposition home or self-care (01) ==
LOC: ER 19:49
DX: B34.9 Viral infection, unspecified (principal); Z20.828 Contact with and (suspected) exposure to other viral communicable diseases; R07.89 Other chest pain; E11.65 Type 2 diabetes mellitus with hyperglycemia; E78.00 Pure hypercholesterolemia, unspecified; F17.210 Nicotine dependence, cigarettes, uncomplicated; Z91.040 Latex allergy status
CPT/HCPCS: 36415; 71045; 80053; 80307; 81001; 81025; 82010; 82553; 82947; 83690; 83735; 83880; 84484; 85025; 87070; 87880; 93005; 96361; 96374; 96375; 99285; C9803; J1885; J3490; J7030; U0003; J1815